=== PATIENT | female | born 1945 | race Caucasian/White ===

== ENCOUNTER → 2017-02-12 | Outpatient (CLI) | payer BC ==
[~2017-02-12] MED LIST: ADVIN10050 PO; AMOX250C3 PO; APIX1TAB3 PO; BIOF500T PO; CHOL100010 PO; DILT120C99 PO; ESCI10TA17 PO; ESTR1CRE; PANT40TA PO
[2017-02-12 10:45] LABS: BASO ABS # 0.04 K/uL (0-0.2); COMPLETE YES; EOS % 3.9 %; HEMATOCRIT 44.6 % (37-47); LYMPH % 21.5 %; LYMPH ABS # 0.89 K/uL (1.2-3.4); MEAN CELL VOLUME 89.2 fL (80-100); MEAN CORPUSCULAR HEMOGLOBIN 30.6 pg (25-34); MEAN CORPUSCULAR HGB CONC 34.3 g/dl (32-36); MEAN PLATELET VOLUME 9.2 fL (7.4-10.4); MONO % 8.5 %; NEUT % 65.1 %; PLATELET COUNT 241 K/uL (130-400); WHITE BLOOD COUNT 4.13 K/uL (4.8-10.8)
[2017-02-12 11:24] LABS: ALT/SGPT 28 U/L (12-78); AST/SGOT 20 U/L (15-37); BLOOD UREA NITROGEN 13 mg/dl (7-18); BUN/CREATININE RATIO 18.1 (10-20); CALCIUM 8.9 mg/dl (8.5-10.1); CARBON DIOXIDE 32 mmol/L (21-32); CHLORIDE 105 mmol/L (98-107); CREATININE 0.74 mg/dl (0.60-1.20); GLUCOSE 92 mg/dl (70-99); POTASSIUM 3.7 mmol/L (3.5-5.1); SODIUM 142 mmol/L (136-145)
[2017-02-12 11:27] LABS: ALB/GLOB RATIO 1.1 (0.9-2); ALKALINE PHOSPHATASE 95 U/L (45-117); CHOLESTEROL 232 mg/dl (0-200); HDL CHOLESTEROL 115 mg/dl; LDL CHOLESTEROL CALCULATED 106 mg/dl; TRIGLYCERIDES 54 mg/dl (0-150); VERY LOW DENSITY LIPOPROT CALC 11 mg/dl
== END | disposition home or self-care (01) ==
LOC: C.LAB 09:59
PROVIDERS: ATTEND Internal Medicine
DX: Z79.01 Long term (current) use of anticoagulants (principal); M81.0 Age-related osteoporosis without current pathological fracture

== ENCOUNTER → 2017-02-16 | Outpatient (CLI) | payer BC ==
--- NOTE | 2017-02-19 12:45 | MAMMOGRAPHY REPORT ---
BILATERAL DIGITAL SCREENING MAMMOGRAM TOMOSYNTHESIS WITH CAD: 02/16/2017 CLINICAL HISTORY: Asymptomatic. Personal history of breast cancer. TECHNIQUE: Breast tomosynthesis in addition to standard 2D mammography was performed. Current study was also evaluated with a Computer Aided Detection (CAD) system. COMPARISON: Comparison is made to exams dated: 02/14/2016 mammogram, 02/11/2015 mammogram, 02/09/2014 ma mmogram, 02/06/2013 mammogram, 02/05/2012 mammogram, and 02/03/2011 mammogram - [facility] enter. BREAST COMPOSITION: The tissue of both breasts is extremely dense, which lowers the sensitivity of mammography. FINDINGS: No suspicious masses, calcifications, or areas of architectural distortion are noted in e ither breast. There has been no significant interval change compared to prior exams. There are stab le post surgical changes in the right upper outer quadrant posteriorly from prior lumpectomy. Bilat eral benign-appearing calcifications are not significantly changed. Asymmetry seen within the right medial breast on the cc view effaces on the right X CCL view and has the appearance of normal fibro glandular tissue on the tomosynthesis images. IMPRESSION: ACR BI-RADS CATEGORY 2: BENIGN There is no mammographic evidence of malignancy. A 1 year screening mammogram is recommended. The p atient will receive written notification of the results. Approximately 10% of breast cancers are not detected with mammography. A negative mammographic repor t should not delay biopsy if a clinically suggestive mass is present. Latesha Maldonado M.D. /:02/18/2017 11:55:47 Inside Wirer: Olivia PRICE)(Carloz), [facility] letter sent: Normal 1/2 BI-RADS Code: ACR BI-RADS Category 2: Benign
== END | disposition home or self-care (01) ==
LOC: C.MAMM 08:08
PROVIDERS: ATTEND Internal Medicine
DX: Z12.31 Encounter for screening mammogram for malignant neoplasm of breast (principal); Z85.3 Personal history of malignant neoplasm of breast

== ENCOUNTER → 2017-03-23 | Outpatient (CLI) | payer BC ==
--- NOTE | 2017-03-23 15:31 | DIAGNOSTIC IMAGING REPORT ---
CHEST 2 VIEWS ROUTINE CLINICAL HISTORY: PERSONAL HX OF MALIGNANT MELANOMA OF SKIN COMPARISON STUDY: 04/04/2015 FINDINGS: The bones soft tissues and hemidiaphragms are normal. The cardiomediastinal silhouette is normal. The lungs are clear. The pulmonary vasculature is normal. Stable calcified granuloma left base. Mild emphysematous change. IMPRESSION: No acute process. Chronic change. Electronically signed by: Lee Valdivia M.D. 03/23/2017 3:30 PM Dictated Date/Time: 03/23/2017 3:29 PM
== END | disposition home or self-care (01) ==
LOC: C.RAD 15:07
PROVIDERS: ATTEND Dermatology
DX: Z85.820 Personal history of malignant melanoma of skin (principal); R05 Cough; R61 Generalized hyperhidrosis

== ENCOUNTER → 2018-02-20 | Outpatient (CLI) | payer BC ==
--- NOTE | 2018-02-21 07:56 | MAMMOGRAPHY REPORT ---
BILATERAL DIGITAL SCREENING MAMMOGRAM TOMOSYNTHESIS WITH CAD: 02/20/2018 CLINICAL HISTORY: Asymptomatic. Personal history of breast cancer. TECHNIQUE: Breast tomosynthesis in addition to standard 2D mammography was performed. Current study was also evaluated with a Computer Aided Detection (CAD) system. COMPARISON: Comparison is made to exams dated: 02/16/2017 mammogram, 02/14/2016 mammogram, 02/11/2015 mamm ogram, 02/09/2014 mammogram, 02/06/2013 mammogram, and 02/05/2012 mammogram - [facility]. BREAST COMPOSITION: The tissue of both breasts is extremely dense, which lowers the sensitivity of m ammography. FINDINGS: A linear scar marker overlies the upper outer posterior right breast. There is expected un derlying architectural distortion and surgical clips at the site of prior lumpectomy. There are scat tered benign rounded and coarse calcifications and minimal vascular calcification in the breasts. No suspicious mass, architectural distortion or cluster of microcalcifications is seen. IMPRESSION: ACR BI-RADS CATEGORY 1: NEGATIVE There is no mammographic evidence of malignancy. A 1 year screening mammogram is recommended. The pa tient will receive written notification of the results. Approximately 10% of breast cancers are not detected with mammography. A negative mammographic report should not delay biopsy if a clinically suggestive mass is present. Makenna Marie M.D. ay/:02/20/2018 10:00:13 Landscape Laborer: Carmen SHIRLEYR, M, [facility] letter sent: Normal 1/2 BI-RADS Code: ACR BI-RADS Category 1: Negative
== END | disposition home or self-care (01) ==
LOC: C.MAMM 08:16
PROVIDERS: ATTEND Internal Medicine
DX: Z12.31 Encounter for screening mammogram for malignant neoplasm of breast (principal); Z85.3 Personal history of malignant neoplasm of breast

== ENCOUNTER 2019-12-17 08:06 | Observation (INO) ==
--- NOTE | 2019-12-11 13:04 | PAT Medication Instructions ---
Medication Instructions Date of Service December 11, 2019 Home Medications Medication Instructions Recorded diltiazem HCl 120 mg 120 mg PO QAM #90 cap 04/21/19 capsule,extended release 24 hr apixaban 5 mg tablet 5 mg PO BID #180 tab 11/18/19 cholecalciferol (vitamin D3) [Vitamin D3] 5,000 units PO DAILY coQ10 (ubiquinol) 100 mg PO DAILY diclofenac sodium 2 g TOPICAL BID PRN ivermectin [Soolantra] 1 applic TOPICAL DAILY PRN fluticasone 100 mcg-salmeterol 50 mcg/dose blistr powdr for inhalation 1 puff INHALATION UD PRN metronidazole 0.75 % topical cream 1 appln TOPICAL DAILY PRN multivitamin 1 tab PO BID diltiazem HCl 120 mg capsule,extended release 24 hr 120 mg PO QAM apixaban 5 mg tablet 5 mg PO BID ascorbic acid (vitamin C) [Vitamin C] 500 mg PO DAILY conjugated estrogens [Premarin] 1 applic VAGINAL WK escitalopram oxalate [Lexapro] 10 mg PO HS prasterone (dhea) [DHEA] 25 mg PO DAILY zoledronic [id number] [Reclast] 1 mg IV UD Continue as directed conjugated estrogens [Premarin] 1 applic VAGINAL WK zoledronic [id number] [Reclast] 1 mg IV UD ASK your prescriber and surgeon apixaban 5 mg tablet 5 mg PO BID (in order for spinal anesthesia, Apixaban needs to be stopped 3 days/72 hours before surgery. Please check if okay with doctor that prescribes this to you) STOP taking 2 weeks before surgery (or as soon as possible if surgery is within 2 weeks) coQ10 (ubiquinol) 100 mg PO DAILY prasterone (dhea) [DHEA] 25 mg PO DAILY STOP taking 24 hours before surgery diclofenac sodium 2 g TOPICAL BID PRN metronidazole 0.75 % topical cream 1 appln TOPICAL DAILY PRN DO NOT take the morning of surgery cholecalciferol (vitamin D3) [Vitamin D3] 5,000 units PO DAILY multivitamin 1 tab PO BID ascorbic acid (vitamin C) [Vitamin C] 500 mg PO DAILY Take morning of surgery With a small sip of water, OTHERWISE NOTHING TO EAT OR DRINK AFTER MIDNIGHT: fluticasone 100 mcg-salmeterol 50 mcg/dose blistr powdr for inhalation 1 puff INHALATION UD PRN (if needed) diltiazem HCl 120 mg capsule,extended release 24 hr 120 mg PO QAM Take evening before surgery fluticasone 100 mcg-salmeterol 50 mcg/dose blistr powdr for inhalation 1 puff INHALATION UD PRN (if needed) multivitamin 1 tab PO BID escitalopram oxalate [Lexapro] 10 mg PO HS Other Notes If you have any questions please call us at [phone] or [phone] or [phone] or [phone]
--- NOTE | 2019-12-12 11:36 | Anesthesiology Consultation ---
Date of Service December 12, 2019 Assessment & Plan (1) Encounter for pre-operative examination: Chart Review Chart Review: Acceptable Risk for Surgery and Patient seen in Pre Admission Testing Teaching & Discussion Instructed NPO after midnight before surgery, except medications with 15 cc of water. Medication instructions provided according to the PAT guidelines. History Surgery Operation Date: 12/17/19 10:40 Proposed Procedures p Left Revision Patellar Button with Possible Poly Exchange - Stephen Bazan MD Height/Weight Height: 5 ft 7 in Weight: 61.7 kg Allergies Allergy/AdvReac Type Severity Reaction Status Date / Time cortisone Allergy Unknown skin turns Verified 12/10/19 16:03 white at site of injection felt dizzy adhesive tape AdvReac Unknown SKIN Verified 12/10/19 16:03 REDNESS erythromycin base AdvReac Unknown upset Verified 12/10/19 16:03 stomach salicylates AdvReac Unknown upset Verified 12/10/19 16:03 stomach Meclizine HCl TABS Allergy Unknown PT NOT Uncoded 12/10/19 16:03 SURE WHAT THIS MED IS OR IF ALLERGY Remeron TABS Allergy Unknown PT NOT Uncoded 12/10/19 16:03 SURE WHAT THIS MED IS OR IF ALLERGY Medications Home Medications Medication Instructions Recorded Confirmed Last Taken cholecalciferol (vitamin D3) 5,000 units PO DAILY 09/05/18 12/10/19 10/07/18 [Vitamin D3] coQ10 (ubiquinol) 100 mg PO DAILY 09/05/18 12/10/19 10/07/18 diclofenac sodium 2 g TOPICAL BID PRN 09/05/18 12/10/19 10/07/18 ivermectin [Soolantra] 1 applic TOPICAL DAILY PRN 09/05/18 12/10/19 09/23/18 fluticasone 100 mcg-salmeterol 50 1 puff INHALATION UD PRN 04/18/19 12/10/19 Unknown mcg/dose blistr powdr for inhalation metronidazole 0.75 % topical cream 1 appln TOPICAL DAILY PRN gm 04/18/19 12/10/19 Unknown multivitamin 1 tab PO BID 04/18/19 12/10/19 Unknown diltiazem HCl 120 mg 120 mg PO QAM #90 cap 04/21/19 12/10/19 Unknown capsule,extended release 24 hr apixaban 5 mg tablet 5 mg PO BID #180 tab 11/18/19 12/10/19 Unknown ascorbic acid (vitamin C) [Vitamin 500 mg PO DAILY 12/10/19 12/10/19 Unknown C] conjugated estrogens [Premarin] 1 applic VAGINAL WK 12/10/19 12/10/19 Unknown escitalopram oxalate [Lexapro] 10 mg PO HS 12/10/19 12/10/19 Unknown prasterone (dhea) [DHEA] 25 mg PO DAILY 12/10/19 12/10/19 Unknown zoledronic [id number]-[id number]-[id number] 1 mg IV UD 12/10/19 12/10/19 12/03/19 [Reclast] Past Medical History Medical History (Updated 12/12/19 @ 15:09 by Sánchez Alejandre) Anticoagulant long-term use (Chronic) Anxiety Asthma EXERCISED INDUCED ASTHMA Atrial fibrillation DX 2 YR AGO Back problem Cancer RT BREAST (RADIATION/CHEMO) MELANOMA RT ARM Chronic cough Degenerative disc disease Depression Dry eye syndrome GERD (gastroesophageal reflux disease) Hiatal hernia Hyperlipidemia (Chronic) Jaw symptom "GETS TIRED IF OPEN TOO LONG" Meniere disease Multiple sclerosis (Chronic) IN REMISSION CURRENTLY Neck problem ARTHRITIS Osteoarthritis Osteoporosis (Chronic) Peripheral neuropathy LEFT FOOT Raynaud phenomenon Rosacea Seasonal allergies SNHL (sensorineural hearing loss) Exercise / Class Metabolic Activity II 4-5 Yardwork/Stairs/Walk up hill (Denies CP or SOB with 1 FOS) Past Family History Family History Grandfather Family hx of colon cancer Past Surgical History Surgical History History of cataract surgery left History of colonoscopy History of shoulder surgery R History of tooth extraction History of total abdominal hysterectomy and bilateral salpingo-oophorectomy History of total knee replacement RT/LEFT Hx of lumpectomy RT, WITH NODES Past Anesthesia History No Hx of Anesthesia Complications and No Family Hx of Anesthesia Complications History of PONV No Hx of PONV and No Hx of Motion Sickness Social History Smoking Status: Never smoker Do You Dip or Chew Tobacco: No Hx Alcohol Use: Yes Alcohol type: wine and hard liquor alcohol intake frequency: other Alcohol Intake Frequency Comment: GLASS A WEEK Hx Substance Use: No substance use type: does not use Review of Systems Pt denies any recent chest pain, shortness of breath, cough, fever or URI. +s ymptomatic afib occasionally, brief episodes Physical Exam Vital Signs BP: 101/61 P: 71bpm SPO2: 94% RA T: 98.2 F R: 12 ENMT Mouth: + dental restorations ("a lot of crowns"); no chipped teeth and no loose teeth Thyromental Distance: > or= 3.5 Finger Breadths (4) Mallampati Class: I Neck normal visual inspection; neck extension not limited Respiratory normal respiratory effort Auscultation: lungs clear to auscultation bilaterally Cardiovascular Rate/Rhythm: regular rate and regular rhythm Heart Sounds: no murmur Vessels: no carotid bruit Extremities: no edema Testing Laboratory Results 12/12/19 11:49 12/12/19 11:49 PT 10.6 Seconds (9.0-12.0) 12/12/19 11:49 INR 1.0 (0.9-1.1) 12/12/19 11:49 APTT 30.5 Seconds (21.0-31.0) 12/12/19 11:49 Urine Color Dark Yellow 12/12/19 Unknown Urine Appearance Clear (Clear) 12/12/19 Unknown Urine pH 7.5 (4.5-7.5) 12/12/19 Unknown Ur Specific [place] 1.017 (1.000-1.030) 12/12/19 Unknown Urine Protein Negative (Negative) 12/12/19 Unknown Urine Glucose (UA) Negative (Negative) 12/12/19 Unknown Urine Ketones Negative (Negative) 12/12/19 Unknown Urine Nitrite Negative (Negative) 12/12/19 Unknown Ur Leukocyte Esterase Negative (Negative) 12/12/19 Unknown Blood Type A Positive 12/12/19 11:49 Antibody Screen POSITIVE A 12/12/19 11:49 Electrocardiogram Date: 12/12/19 Findings: + NSR @ (62bpm) Chest X-Ray Date: 12/12/19 FINDINGS: Stable calcified granuloma within the left lower lobe. Mild anterior wedging within the upper thoracic vertebral body, unchanged. This is likely chronic. No new focal lung consolidations to suggest pneumonia. No evidence for pulmonary edema. Mild emphysema. No pleural effusions. No pneumothorax. The heart is normal in size. Surgical clips again noted within the right breast. IMPRESSION: No significant change compared to the prior study. No acute process. Mild emphysema. Pulmonary Function Test Date: 07/18/19 Spirometry shows a low normal forced vital capacity and FEV1 with a slightly decreased FEV1/FVC ratio. This to be compatible with mild obstruction. Repeat study done following bronchodilator showed significant improvement in small airways function only. Lung volumes normal. Diffusion was normal at 80%.
[2019-12-12 12:07] LABS: Basophils # (auto) 0.05 K/uL (0-0.2); Basophils % (auto) 1.3 %; Eosinophils # (auto) 0.16 K/uL (0-0.5); Eosinophils % (auto) 4.1 %; Hematocrit (blood only) 42.4 % (37-47); Hemoglobin 14.4 g/dL (12.0-16.0); Lymphocytes # (auto) 0.98 K/uL (1.2-3.4); Lymphocytes % (auto) 25.3 %; Mean Corpuscular Hemoglobin 30.8 pg (25-34); Mean Corpuscular Volume 90.6 fL (80-100); Mean Platelet Volume 9.2 fL (7.4-10.4); Monocytes # (auto) 0.32 K/uL (0.11-0.59); Monocytes % (auto) 8.3 %; Neutrophils # (auto) 2.36 K/uL (1.4-6.5); Platelet Count 253 K/uL (130-400); RDW Coefficient of Variation 12.9 % (11.5-14.5); RDW Standard Deviation 42.2 fL (36.4-46.3); Red Blood Count 4.68 M/uL (4.2-5.4); White Blood Count 3.87 K/uL (4.8-10.8)
[2019-12-12 12:21] LABS: Partial Thromboplastin Ratio 1.1; Partial Thromboplastin Time 30.5 Seconds (21.0-31.0); Prothrombin Time 10.6 Seconds (9.0-12.0)
[2019-12-12 12:26] LABS: Appearance Urine Clear (Clear); Bilirubin Urine Negative (Negative); Blood Urine Negative (Negative); Color Urine Dark Yellow; Glucose Urine UA Negative (Negative); Ketones Urine Negative (Negative); Leukocyte Esterase Urine Negative (Negative); Nitrite Urine Negative (Negative); Protein Urine Negative (Negative); Specific Gravity Urine 1.017 (1.000-1.030); Urobilinogen Urine Negative (Negative); pH Urine 7.5 (4.5-7.5)
--- NOTE | 2019-12-12 12:31 | XRay Report ---
XR chest Pre-admission PA/Lat HISTORY: Preop. COMPARISON: Chest 06/18/2019. FINDINGS: Stable calcified granuloma within the left lower lobe. Mild anterior wedging within the upp er thoracic vertebral body, unchanged. This is likely chronic. No new focal lung consolidations to cross ggest pneumonia. No evidence for pulmonary edema. Mild emphysema. No pleural effusions. No pneumothor ax. The heart is normal in size. Surgical clips again noted within the right breast. IMPRESSION: No significant change compared to the prior study. No acute process. Mild emphysema. ACT 112: Negative or not required by law. Electronically signed by: Sumanth Grover M.D. 12/12/2019 12:29 PM
--- NOTE | 2019-12-12 13:07 | Electrocardiogram Report ---
Test Reason : Blood Pressure : / mmHG Vent. Rate : 062 BPM Atrial Rate : 062 BPM P-R Int : 164 ms QRS Dur : 074 ms QT Int : 438 ms P-R-T Axes : 072 062 059 degrees QTc Int : 444 ms Normal sinus rhythm Normal ECG When compared with ECG of 06-SEP-2007 12:01, No significant change was found Confirmed by Jan Peralta ([id number]) on 12/12/2019 1:06:30 PM Referred By: Stephen Bazan Confirmed By:Ash Peralta
[2019-12-12 13:16] LABS: BUN Creatinine Ratio 20.5 (10-20); Creatinine Clr Calc Pharmacy 69.6 ml/min; Est GFR (African American) 98.6; Est GFR (Non-African American) 85.1; Potassium 4.3 mmol/L (3.5-5.1)
--- NOTE | 2019-12-15 18:24 | History and Physical Report ---
DATE OF ADMISSION: 12/17/2019 CHIEF COMPLAINT: Left knee pain. HISTORY OF PRESENT ILLNESS: This 74-year-old white female presents to the office with complaints of left knee pain since June. She has a history of previous bilateral total knee arthroplasties done [address] Dhali[address]. She states the left knee has bothered her in some fashion since the time of surgery. She has remained active. She goes to the gym 3 days a week. In June, she was walking her dog while it was dark. The dog got in front of her and she tripped over the dog, landing directly on her left knee. It was flexed and she landed on the patella. She has had difficulty with stairs and squat since. No significant effusions. No redness or warmth. There were no open wound. No catching or locking. She denies any buckling. She denies any loss of motion, though there is discomfort with attempts at hyperflexion. Radiographic imaging has been obtained and suggests a loose patellar button. No numbness or tingling. She elects to proceed with left knee revision of her patellar button with possible poly exchange in hopes of improving her discomfort and function. PAST MEDICAL HISTORY: Significant for atrial fibrillation, exercise-induced asthma, anxiety, depression, osteoarthritis, back pain, history of breast cancer, hiatal hernia, history of melanoma, and rosacea. ALLERGIES: KNOWN ALLERGY TO ERYTHROMYCIN AND ASPIRIN, WHICH CAUSES UPSET STOMACH. She does get some SKIN IRRITATION from regular ADHESIVE TAPE. CURRENT MEDICATIONS: Advair Diskus 1 puff daily, Amita 180 mg daily, betamethasone dipropionate 0.05% topical cream b.i.d., cannabidiol daily, diltiazem 120 mg daily, Eliquis 5 mg p.o. b.i.d., Lexapro 10 mg p.o. daily, Lumify ophthalmic solution p.r.n., metronidazole 0.75% topical gel applied b.i.d. to face, Premarin 0.625 mg p.o. twice weekly, Soolantra 1% topical cream applied to face daily and Voltaren topical gel q.i.d. p.r.n. SOCIAL HISTORY: The patient is . Retired. No tobacco use, occasional ETOH use. FAMILY HISTORY: Significant for cancer, otherwise unremarkable. PREVIOUS SURGERIES: Bilateral total knee replacements, 2006, right shoulder surgery in 2001, breast lumpectomy in 1997, hysterectomy in 1982, multiple shave biopsies, excision of melanoma. REVIEW OF SYSTEMS: A total of 10 systems are reviewed and are significant only for above stated conditions. PHYSICAL EXAMINATION: GENERAL: Well-developed, well-nourished elderly white female in no acute distress. Sitting in a chair. Alert and oriented. VITAL SIGNS: Temperature 36.6 oral, BP 110/60, pulse 77, O2 sat 97% on room air, height 170 cm, weight 62.4 kilograms, BMI 21.6. SKIN: Warm and dry with good turgor. No rashes or lesions. No ecchymosis or erythema. Very mild effusion in the left knee. HEENT: Normocephalic, atraumatic. Eyes PERRLA, EOMI. Nares patent bilaterally without turbinate enlargement. Oropharynx without erythema or exudate. No lesions noted. Uvula midline. Oral mucosa moist. Good dentition. Fillings and caps are noted. HEART: RRR. No MGR. LUNGS: Clear to auscultation bilaterally. No crackles, rhonchi or wheezing. Good air movement. ABDOMEN: Bowel sounds present x4, soft, nontender. No organomegaly. No masses. MUSCULOSKELETAL: Left knee evaluation reveals a mild intraarticular effusion. Full terminal extension. Flexion to greater than 110 degrees. Strength is 5/5 with good quad tone. Stable collateral ligaments. No defect in the patellar tendon or quadriceps tendon. She does have discomfort with palpation over the anterior lateral aspect of her knee along the patella. No joint line pain. Fairly good patellar mobility. Ambulates without any limp. NEUROLOGIC: Gross sensation is intact across both lower extremities by soft touch. Peripheral pulses are 2+. Cranial nerves II-XII are intact. DATA: Radiographic imaging previously obtained is concerning for a displaced patellar button. No evidence of loosening of her femoral or tibial implants. IMPRESSION: Left knee loose patellar button. PLAN: Postoperative prescriptions for Percocet and Coumadin will be provided at discharge from the hospital. Anticipate discharge to home with home health services. She may also receive outpatient PT. Preoperative lab work, EKG, and chest x-ray have been ordered. She has already spoken to her PCP and construction stonemason for clearance as they are forthcoming. She will stop her Eliquis on Sunday. No bridging is required according to the patient. She already has a walker and cane.
[~2019-12-17 08:06] MED LIST changes: -ADVIN10050 PO; -AMOX250C3 PO; -APIX1TAB3 PO; -BIOF500T PO; +BUPIVACAINE 0.5 % 5 MG/1 ML PF 10ML VIAL ONE; +CEFAZOLIN 2000MG 2,000 MG/15 ML SYR IV SCH; -CHOL100010 PO; -DILT120C99 PO; -ESCI10TA17 PO; -ESTR1CRE; +LR 500ML BOLUS, THEN 15ML/HR IV SCH; +LR 60ML/HR IV SCH; -PANT40TA PO; +ROPIVACAINE 0.5% HCL/PF 150 MG, BUPIVACAINE 0.5% MPF 30 ML, EPINEPHrine 0.15 MG, Ketoro... INFIL SCH; +TRANEXAMIC ACID 1,000 MG **IV Intra-op IV SCH; +TRANEXAMIC ACID 1,000 MG x 1 **For Topical Use TOP SCH
--- NOTE | 2019-12-17 08:34 | History & Physical Bridge Note ---
Date of Service December 17, 2019 History & Physical Bridge Note I have examined the patient, reviewed the History & Physical and in the interval since the performance of the History & Physical I have noted the following changes of clinical significance:consent obtained. no changes noted
[2019-12-17] MEDS ORDERED: fentaNYL citrate 100 MCG/2 ML VIAL IV PRN (09:20)
[2019-12-17] MEDS ORDERED: ONDANSETRON INJ 2 MG/ML 2 ML VIAL IV PRN ×2 (09:20→14:13)
[2019-12-17] MEDS ORDERED: ATROPINE SULFATE 0.1 MG/ML 10ML SYR IV PRN (09:20)
[2019-12-17] MEDS ORDERED: ePHEDrine sulfate 50 MG/ML AMP IV PRN (09:20)
[2019-12-17] MEDS ORDERED: ONDANSETRON INJ 2 MG/ML 2 ML VIAL ONE (09:37)
[2019-12-17] MEDS ORDERED: MIDAZOLAM HCL 1 MG/ML 2ML VIAL ONE (09:37)
[2019-12-17] MEDS ORDERED: fentaNYL citrate 100 MCG/2 ML VIAL ONE (09:37)
[2019-12-17] MEDS ORDERED: PROPOFOL IV EMULSION 10 MG/ML 20 ML VIAL IV ONE ×2 (09:37→11:32)
[2019-12-17] MEDS ORDERED: LIDOCAINE HCL 2% 2 ML VIAL/AMP(20MG/ML) INFIL ONE (09:37)
[2019-12-17] MEDS ORDERED: ORTHO JOINT ANESTHETIC ONE (10:27)
--- NOTE | 2019-12-17 12:25 | Post Operative Brief Note ---
Immediate Post Op Note v1 Date of Surgery December 17, 2019 Pre & Post Diagnosis Operation Date: 12/17/19 10:40 Pre-Op Diagnosis: Left Total Knee Arthroplasty Loose Patella Button Post-Op Diagnosis: Left Total Knee Arthroplasty Loose Patella Button I identified the patient and participated in the time-out.: Yes Procedure Operation Date: 12/17/19 10:40 Actual Procedures p Left Revision Patellar Button (Left) - Stephen Bazan MD Surgeon Stephen Bazan MD Machine Wedger giovanna/shoshana Estimated Blood Loss 50 Findings Consistent with Post-Op Diagnosis
--- NOTE | 2019-12-17 12:35 | Operative Report ---
Post Operative Report Pre & Post Diagnosis Operation Date: 12/17/19 10:40 Pre-Op Diagnosis: Left Total Knee Arthroplasty Loose Patella Button Post-Op Diagnosis: Left Total Knee Arthroplasty Loose Patella Button I identified the patient and participated in the time-out.: Yes Procedure Operation Date: 12/17/19 10:40 Actual Procedures p Left Revision Patellar Button (Left) - Stephen Bazan MD Surgeon SUE Bazan MD Mix House Tender giovanna/shoshana Estimated Blood Loss 50 Findings Consistent with Post-Op Diagnosis Specimens see operative report Drains none Complications none Disposition Accompanied Patient To Recovery: Yes Disposition: Recovery Room Indications This 74-year-old white female presented to the office with complaints of anterior left knee pain after falling in June. She landed on her knee at that time and has had discomfort since. Radiographic imaging showed a loose patellar button. She elected to proceed with surgical intervention after being educated about potential risks and outcomes. Description of Procedure Patient was administered a spinal anesthetic and then taken to the operating room where she was given sedation. She was prepped and draped in the usual sterile fashion. Please see Dr. Bazan's operative report for specifics of the procedure. I was present for the entire case from initial patient positioning through final wound closure. Assistance was provided in tissue retraction, hemostasis, trial implant placement, final implant placement, and final wound closure. Patient was taken to the recovery room in satisfactory condition. I attest to the content of the Intraoperative Record and any orders documented therein. Any exceptions are noted below.
--- NOTE | 2019-12-17 13:03 | Operative Report (OR) ---
DATE OF OPERATION: 12/17/2019 SURGEON: Stephen Bazan MD JUNIOR PROJECT MANAGER: Rod. SECOND JUNIOR PROJECT MANAGER: Solomon Maldonado PA-C. PREOPERATIVE DIAGNOSIS: Loose patellar button aseptic based on preoperative workup including CRP, sed rate, and alpha defensin joint culture.Left Knee. POSTOPERATIVE DIAGNOSIS: Loose patellar button aseptic based on preoperative workup including CRP, sed rate, and alpha defensin joint culture.Left Knee. OPERATION PERFORMED: Synovectomy with excision of loose patellar implant and implantation of induction NexGen augment patella 19.5 mm thick medium size.Left Knee. PERIOPERATIVE SITUATION: Medically cleared female who has developed anterior knee pain which has gotten progressive over the years. She had bilateral knee replacements. She is noted to have never had any issues with wounds or fever, etc. She feels like something around her kneecap. Physical exam, x-ray and workup was consistent with aseptic loosening of her patella. OPERATION: Exchange arthroplasty patellofemoral joint with removal of patellar button and implantation of NexGen augment patella cemented medium implant. This is left knee. DESCRIPTION OF PROCEDURE: The patient appropriately identified, site verified, consent verified. Antibiotics confirmed as being given. The left lower extremity was prepped and draped in usual routine fashion. The old incision was utilized and extended slightly proximal and distal about 0.5 cm in each direction. Full thickness flaps were raised. Parapatellar arthrotomy performed. One could see the patella was loose, it was lifted off by hand. The synovectomy was completed, the patella was everted. There was a shell of bone left. It was deepened out and once this was all irrigated, it was clear that the medium implant would be appropriate size. The knee was then inspected. The femur was fixed solid. The overhang that was there on the x-ray was without any loosening. The tibia was solid and the poly was intact. There was no wear. This was then all irrigated. The patella was then everted easily and then once the patella was deepened with the bur, the medium implants seated well and then using #2 FiberWire with coup/contra coup positioning, the implant was sewn into position. Once that was all cleaned and in place, the permanent implant was cemented into the NexGen augment. After 14 minutes, the area was irrigated. The patella tracked well. The TXA was applied for 3 minutes. This was then irrigated. Orthomix injected into the wound. The wound was then closed in flexion about 50 degrees with #2 Vicryl, 2-0 Vicryl and stainless steel clips. Appropriate dressing applied. The patient transferred to recovery room in satisfactory condition having tolerated the procedure well. DVT prophylaxis, PE prophylaxis will be with her normal Eliquis based on her AFib treatment. That will start 24 hours postop. I attest to the content of the Intraoperative Record and any orders documented therein. Any exceptions are noted below. JAMALD
--- NOTE | 2019-12-17 13:03 | XRay Report ---
XR knee LT 1 or 2V routine HISTORY: 74 years-old Female post op AP/Lateral in PACU [left knee total joint arthroplasty COMPARISON: [Radiographs 11/24/2019 TECHNIQUE: 3 views left knee FINDINGS: [Left knee total joint arthroplasty with patellar prosthesis. Anterior midline skin kody are noted with expected postsurgical soft tissue swelling and deep tissue air. Surgical drainage catheter. No acute fracture or retained foreign body. IMPRESSION: Expected postoperative findings. ACT 112: Negative or not required by law. The above report was generated using voice recognition software. It may contain grammatical, syntax o r spelling errors. Electronically signed by: Don Kuhn M.D. 12/17/2019 1:02 PM
--- NOTE | 2019-12-17 13:23 | Anesthesiology Progress Note ---
Date of Service December 17, 2019 Anesthesia Post Procedure Vital Signs Vital Signs: Temp Pulse Pulse Resp BP Pulse Ox 12/17/19 13:20 98.6 F 67 15 110/57 L 98 12/17/19 13:10 98.6 F 69 16 109/55 L 98 12/17/19 13:00 67 13 105/54 L 100 12/17/19 12:50 72 20 105/60 100 12/17/19 12:40 68 17 100/52 L 100 12/17/19 12:34 97.3 F L 70 18 99/51 L 100 12/17/19 08:52 98.6 F 86 18 119/66 99 Transfer of Care Handoff Completed per policy Notes Mental Status: alert / awake / arousable and participated in evaluation Patient Amnestic to Procedure: Yes Nausea / Vomiting: adequately controlled Pain: adequately controlled Airway Patency, RR, SpO2: stable & adequate BP & HR: stable & adequate Hydration State: stable & adequate Neuraxial Anesthesia: was administered and sensory block is resolving Anesthetic Complications: no major complications apparent and Pt Satisfied with anesthetic care
--- NOTE | 2019-12-17 13:27 | Progress Notes ---
DATE: 12/17/2019 Postop check, status post revision patellar button left total knee replacement. The patient is doing well, has no major issues of chest pain, shortness of breath, fever, chills, nausea, vomiting or headache. Vital signs are stable. She is afebrile. Postop x-rays look excellent. Wound dressing clean, dry and intact. Sensory exam still limited by block. ASSESSMENT: Doing well postop revision patellar button. At this point in time continue postop care pathway. Discharge tomorrow if does well overnight.
--- NOTE | 2019-12-17 13:59 | Discharge Summary (DS) ---
CHIEF COMPLAINT: Left knee pain. HISTORY OF PRESENT ILLNESS: Underwent a revision button with metal backed poly system. At this point in time is doing well. If continues to do well, be discharged tomorrow. PAST MEDICAL HISTORY: Remarkable for atrial fibrillation, exercise-induced asthma, anxiety, depression, osteoarthritis, back pain, history of breast cancer, hiatal hernia, history of melanoma and rosacea. ALLERGIES: ERYTHROMYCIN, ASPIRIN, which causes stomach upset. She also get some skin irritation from the adhesive tape. PREADMISSION MEDICATIONS: Include Advair Diskus, Amita, betamethasone topical cream, cannabidiol, diltiazem, Eliquis, Lexapro, Lumify ophthalmic solution, metronidazole p.r.n., Premarin, Soolantra topical, Voltaren p.r.n. We will continue all her medications. Start the Eliquis tomorrow. SOCIAL HISTORY: Reveals she is , retired. No tobacco or alcohol use. FAMILY HISTORY: Remarkable for cancer, otherwise unremarkable. PREVIOUS SURGERIES: Include knee replacements in 2006, shoulder surgery 2001, breast surgery in 1997, hysterectomy in 1982, shave biopsies and excision of melanoma. REVIEW OF SYSTEMS: Noncontributory. ASSESSMENT: Status post resurfacing of patellar button with NexGen implant removed the old loose button. At this point in time, did well. Postop x-rays look excellent. Continue postop care pathway. Discharge tomorrow if she does well overnight. Resume her Eliquis tomorrow 24 hours postop.
[2019-12-17] MEDS ORDERED: KETOROLAC TROMETHAMINE 15 MG/ML VIAL IV PRN (14:13)
[2019-12-17] MEDS ORDERED: METOCLOPRAMIDE HCL INJ 5 MG/ML 2 ML VIAL IV PRN (14:13)
[2019-12-17] MEDS ORDERED: SODIUM CHLORIDE 0.9% 1000ML 1,000 ML IV SCH (14:13)
[2019-12-17] MEDS ORDERED: ALUMINUM/MAGNESIUM SUSP 30 ML UDC PO PRN (14:13)
[2019-12-17] MEDS ORDERED: OXYCODONE HCL IR 5 MG TAB (IMMEDIATE RELEASE) PO PRN (14:13)
[2019-12-17] MEDS ORDERED: bisacodyL 10 MG SUPP PR PRN (14:13)
[2019-12-17] MEDS ORDERED: MAGNESIUM HYDROXIDE SUSP 30 ML UDC PO PRN (14:13)
[2019-12-17] MEDS ORDERED: HYDROmorphone INJ 0.5 MG/0.5 ML SYR IV PRN (14:13)
[2019-12-17] MEDS ORDERED: DiphenhydrAMINE HCL 50 MG/ML VIAL IV PRN (14:13)
[2019-12-17] MEDS ORDERED: NALOXONE HCL 0.4 MG/1 ML VIAL/CARP IV PRN (14:13)
[2019-12-17] MEDS ORDERED: FLUTICASONE/VILANTEROL 100/25MCG 14 PUFFS/INHALER INH PRN (14:54)
[2019-12-17] MEDS: ACETAMINOPHEN 500 MG TAB PO SCH ×2 (15:20→21:28)
[2019-12-17] MEDS: FERROUS GLUCONATE 324 MG TAB PO SCH (18:41)
[2019-12-17] MEDS: ASCORBIC ACID 500 MG TAB PO SCH (18:41)
[2019-12-17] MEDS: CEFAZOLIN 2000MG 2,000 MG/15 ML SYR IV SCH (18:41)
[2019-12-17] MEDS: DOCUSATE SODIUM 100 MG CAP PO SCH (20:21)
[2019-12-17] MEDS ORDERED: SENNA 8.6 MG TAB PO SCH (21:00)
[2019-12-17] MEDS ORDERED: ESCITALOPRAM OXALATE 10 MG TAB PO SCH (21:00)
[2019-12-18] MEDS: CEFAZOLIN 2000MG 2,000 MG/15 ML SYR IV SCH (03:18)
[2019-12-18] MEDS: ACETAMINOPHEN 500 MG TAB PO SCH (05:18)
[2019-12-18 06:20] LABS: Hematocrit (blood only) 38.6 % (37-47); Hemoglobin 13.1 g/dL (12.0-16.0); Mean Corpuscular Hemoglobin 30.5 pg (25-34); Mean Corpuscular Hgb Conc 33.9 g/dL (32-36); Mean Platelet Volume 9.1 fL (7.4-10.4); Platelet Count 202 K/uL (130-400); RDW Coefficient of Variation 12.8 % (11.5-14.5); RDW Standard Deviation 41.4 fL (36.4-46.3); Red Blood Count 4.29 M/uL (4.2-5.4); White Blood Count 7.57 K/uL (4.8-10.8)
--- NOTE | 2019-12-18 06:24 | Progress Notes ---
DATE: 12/17/2019 SUBJECTIVE: Status post revision patellar button, left knee is doing well and can do a straight leg raise. Has good neurovascular check femoral sciatic nerve. Wound dressing clean, dry and intact. Pain is well controlled. OBJECTIVE: Vital signs are stable. She is afebrile. ASSESSMENT: Doing well. Discharge to home today. Start Eliquis today.
[2019-12-18 06:51] LABS: BUN Creatinine Ratio 18.9 (10-20); Calcium 8.1 mg/dl (8.5-10.1); Creatinine Clr Calc Pharmacy 65.9 ml/min; Est GFR (African American) 92.3; Est GFR (Non-African American) 79.6; Potassium 3.7 mmol/L (3.5-5.1)
[2019-12-18] MEDS ORDERED: dexAMETHasone 10 MG in SYRINGE 0 ML IV SCH (08:00)
[2019-12-18] MEDS: ASCORBIC ACID 500 MG TAB PO SCH (08:27)
[2019-12-18] MEDS: FERROUS GLUCONATE 324 MG TAB PO SCH (08:27)
--- NOTE | 2019-12-18 08:27 | Anesthesiology Progress Note ---
Date of Service December 18, 2019 Anesthesia Post Procedure Vital Signs Vital Signs: Temp Pulse Pulse Pulse Resp BP Pulse Ox 12/18/19 07:23 36.6 C 63 16 87/51 L 97 12/18/19 03:05 36.6 C 74 14 97/55 L 98 12/17/19 23:21 36.5 C 72 16 107/60 94 12/17/19 19:23 36.6 C 69 14 94/56 L 97 12/17/19 16:42 36.7 C 65 14 103/59 L 99 12/17/19 15:53 36.8 C 68 14 95/54 L 100 12/17/19 14:45 74 16 109/67 100 12/17/19 14:23 69 16 112/61 100 12/17/19 13:50 36.8 C 70 16 99/60 L 96 12/17/19 13:30 37.0 C 67 14 109/54 L 98 12/17/19 13:20 37.0 C 67 15 110/57 L 98 12/17/19 13:10 37.0 C 69 16 109/55 L 98 12/17/19 13:00 67 13 105/54 L 100 12/17/19 12:50 72 20 105/60 100 12/17/19 12:40 68 17 100/52 L 100 12/17/19 12:34 36.3 C L 70 18 99/51 L 100 12/17/19 08:52 37 C 86 18 119/66 99 Notes Mental Status: alert / awake / arousable and participated in evaluation Patient Amnestic to Procedure: Yes Nausea / Vomiting: adequately controlled Pain: adequately controlled Airway Patency, RR, SpO2: stable & adequate BP & HR: stable & adequate Hydration State: stable & adequate Neuraxial Anesthesia: was administered and sensory block resolved Anesthetic Complications: no major complications apparent and Pt Satisfied with anesthetic care
[2019-12-18] MEDS: DOCUSATE SODIUM 100 MG CAP PO SCH (08:28)
[2019-12-18] MEDS ORDERED: APIXABAN 5 MG TABLET PO SCH (09:00)
[2019-12-18] MEDS ORDERED: dilTIAZem HCL 120 MG CAPCR PO SCH (09:00)
[2019-12-18] MEDS ORDERED: MULTIVITAMIN TAB PO SCH (09:00)
--- NOTE | 2019-12-18 10:05 | Orthopedic Progress Note ---
Date of Service December 18, 2019 Assessment & Plan (1) Follow-up examination after orthopedic surgery: Dressings were changed today by me. Compression stocking was applied. PT/OT this morning. Anticipate discharge to home with outpatient services after therapy is completed She will resume her Eliquis this morning and continue twice daily Follow-up in PT on Sunday as scheduled for dressing change and therapy Continue using her walker for ambulation Use the knee immobilizer for protection and support when standing/walking through Sunday morning Call the office with any other concerns follow-up in 2 weeks for staple removal as scheduled Subjective Patient is seen in her room this morning. She is eating breakfast. She has no complaints. She states she slept better last night than she has in many weeks. She has no pain. She has been out of bed last night to go to the bathroom. She is anxious to be discharged today. No chest pain, shortness of breath, nausea, vomiting, or abdominal pain. Review of Systems Review of Systems: Unchanged from preop yesterday Physical Exam Physical Exam: General: Well-developed, well-nourished, elderly white female, in no acute distress. Sitting in her bed. Alert and oriented. Skin: Warm and dry with good turgor. No rashes or lesions. Expected postoperative ecchymosis and edema. No erythema. The patient is not diaphoretic. No abrasions. Musculoskeletal: Postsurgical dressings are in place. Upon removal, expected postoperative ecchymosis and edema. Krysten are intact. Wound edges well approximated. No active drainage. Scant dried blood on her dressings. Patient is able to move her ankle and toes. She is able to flex her knee to around 50 degrees. Full terminal extension. She is able to perform a straight leg raise at this time. Neurologic: Gross sensation is intact across all aspects of the left leg and foot by soft touch. Peripheral pulses are 2+. Results & Data ([facility]) Vital Signs (Past 12 Hours) Vital Signs Temp Pulse Resp BP Pulse Ox 12/18/19 08:30 69 108/62 12/18/19 07:23 36.6 C 63 16 87/51 L 97 12/18/19 03:05 36.6 C 74 14 97/55 L 98 12/17/19 23:21 36.5 C 72 16 107/60 94 Laboratory Results H&H 13.1 and 38.6. WBCs 7.6. PRP is unremarkable.
== END 2019-12-18 13:30 | disposition home or self-care (01) | DRG 468 ==
LOC: ASU 08:06 → 3E 12:43 → INTOOBSV 12:43